=== PATIENT | female | born 2000 | race Two or more races ===

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

== ENCOUNTER 2019-01-21 21:42 | Emergency (ER) | payer OTHER ==
[2019-01-22 00:17] VITALS: BP 107/49
[2019-01-22 00:23] LABS: BILIRUBIN,URINE NEGATIVE (NEGATIVE); GLUCOSE, URINE (UA) NEGATIVE (NEGATIVE); KETONES,URINE (UA) NEGATIVE (NEGATIVE); LEUKOCYTE ESTERASE, URINE NEGATIVE (NEGATIVE); NITRITE,URINE NEGATIVE (NEGATIVE); OCCULT BLOOD,URINE NEGATIVE (NEGATIVE); PROTEIN,URINE NEGATIVE (NEGATIVE); UROBILINOGEN,URINE 0.2 (NORMAL) E.U./dL (NORMAL)
[2019-01-22 00:25] LABS: CLARITY,URINE CLEAR (CLEAR); HCG UR QUAL NEGATIVE
--- NOTE | 2019-01-22 00:26 | ED Physician Documentation ---
PD HPI HEADACHE - Stated complaint Stated Complaint: MIGRAINE - Chief complaint Chief Complaint: Neuro - History obtained from History obtained from: Patient - History of Present Illness Timing - onset: Today Timing - onset during: Light activity Timing - details: Gradual onset, Still present Worst headache ever?: No: Worst headache ever? (feeling similar to migraines in the past. Often not responsive to home meds.) Location: Left Quality: Throbbing, Aching Associated symptoms: Nausea. No: Fever, Stiff neck, Vomiting, Weakness Improved by: Dark room Worsened by: Light Contributing factors: No: Recent illness, Trauma Similar symptoms before: Diagnosis (migraines, sees neurologist) Review of Systems Constitutional: denies: Fever, Chills Eyes: reports: Photophobia. denies: Loss of vision Nose: denies: Rhinorrhea / runny nose, Congestion Throat: denies: Sore throat Respiratory: denies: Cough GI: reports: Nausea. denies: Vomiting, Diarrhea Skin: denies: Rash, Lesions Neurologic: reports: Generalized weakness, Headache. denies: Focal weakness, Numbness, Altered mental status, Head injury PD PAST MEDICAL HISTORY - Past Medical History Past Medical History: Yes Respiratory: Asthma Neuro: Migraines Endocrine/Autoimmune: None Psych: Anxiety - Past Surgical History Past Surgical History: No - Present Medications Home Medications: Ambulatory Orders Medication Instructions Recorded Confirmed Promethazine [Phenergan] 25 - 50 mg PO Q6H PRN #10 tab 02/16/18 Hydrocodone/Acetaminophen [[place] 1 each PO Q6H PRN #15 tablet 01/22/19 5-325 Tablet] Promethazine [Phenergan] 25 mg PO Q6H PRN #10 tab 01/22/19 - Allergies Allergies/Adverse Reactions: Allergies Allergy/AdvReac Type Severity Reaction Status Date / Time ibuprofen Allergy Anaphylaxis Verified 01/21/19 21:51 - Social History Does the pt smoke?: No Smoking Status: Never smoker Does the pt drink ETOH?: No Does the pt have substance abuse?: No - Immunizations Immunizations are current?: Yes - POLST Patient has POLST: No PD ED PE NORMAL - Vitals Vital signs reviewed: Yes - General General: Alert and oriented X 3, Well developed/nourished, Other (appears uncomfortable) - HEENT HEENT: Atraumatic, PERRL (light sensitive) - Neck Neck: Supple, no meningeal sign, No adenopathy - Derm Derm: Normal color, Warm and dry - Neuro Neuro: Alert and oriented X 3, log rafter 2-12 intact, No motor deficit, No sensory deficit, Normal speech Results - Vitals Vitals: Vital Signs - 24 hr 01/21/19 01/22/19 01/22/19 21:48 00:12 01:37 Temperature 36.7 C 36.7 C Heart Rate 94 87 Respiratory 18 14 16 Rate Blood Pressure 113/64 107/49 L O2 Saturation 100 100 Oxygen O2 Source Room air - Labs Labs: Laboratory Tests 01/22/19 00:10 Urine Color YELLOW Urine Clarity CLEAR Urine pH 6.0 Ur Specific [place] 1.025 Urine Protein NEGATIVE Urine Glucose (UA) NEGATIVE Urine Ketones NEGATIVE Urine Occult Blood NEGATIVE Urine Nitrite NEGATIVE Urine Bilirubin NEGATIVE Urine Urobilinogen 0.2 (NORMAL) Ur Leukocyte Esterase NEGATIVE Ur Microscopic Review NOT INDICATED Urine Culture Comments NOT INDICATED Urine HCG, Qual NEGATIVE PD MEDICAL DECISION MAKING - ED course Complexity details: considered differential (patient waited in [facility] long time so did not want to go through IV and meds; opted for IM instead and then to go with best results from that. ), d/w patient Departure - Departure Disposition: 01 Home, Self Care Clinical Impression: Migraine Qualifiers: Migraine type: without aura Status migrainosus presence: with status migrainosus Intractability: not intractable Qualified Code(s): G43.001 - Migraine without aura, not intractable, with status migrainosus Condition: Stable Record reviewed to determine appropriate education?: Yes Instructions: ED Headache Migraine Follow-Up: [facility] [Primary Care Provider] - Prescriptions: Hydrocodone/Acetaminophen [[place] 5-325 Tablet] 1 each PO Q6H PRN #15 tablet PRN Reason: Pain Promethazine [Phenergan] 25 mg PO Q6H PRN #10 tab PRN Reason: Nausea / Vomiting Comments: Hopefully the medicines given here will decrease the headache. You can add your triptan type medicines at home as well. You can use promethazine if needed for nausea. Add pain medicine if needed. Off work tomorrow as needed due to symptoms. Follow-up with your primary care if not improved over the next day or 2. Forms: Activity restrictions Discharge Date/Time: 01/22/19 01:38
[2019-01-22] MEDS ORDERED: HYDROmorphone 2 MG/ML VIAL IM STA (00:42)
[2019-01-22] MEDS ORDERED: PROMETHAZINE 25 MG/1 ML VIAL IM STA (00:42)
[2019-01-22] MEDS ORDERED: KETOROLAC 30 MG/ML VIAL IM STA (00:42)
[2019-01-22] MEDS ORDERED: SODIUM CHLORIDE FLUSH 0.9% 10 ML SYRINGE ONE (02:42)
== END 2019-01-22 01:38 | disposition home or self-care (01) ==
LOC: ED 21:42
DX: G43.001 Migraine without aura, not intractable, with status migrainosus (principal)
CPT/HCPCS: 81003; 81025; 96372; 99283; J1170; 81001; 87086